=== PATIENT | male | born 1955 | race Caucasian/White ===

== ENCOUNTER 2017-12-20 07:30 | Day surgery (SDC) | payer OTHER, SELFPAY ==
--- NOTE | 2017-12-20 | PATH_ITS ---
[facility] Accession Number: [id number] . 01 Material submitted: . PART A: LEFT COLON POLYP AT 40CM PART B: RECTAL POLYP . 02 Diagnosis: A. Left Colon, Polyp at 40 cm, Biopsy: Tubular adenoma. . B. Rectum, Polyp, Biopsy: Tubular adenoma. MRV/12/21/2017 . 02 Electronically signed: . Cecilia Ricci MD, Pathologist NPI- [id number] . 01 Gross description: . Received two formalin-filled containers, both labeled with the patient's name: . A. In a container labeled left colon polyp at 40 cm, the specimen consists of a 0.3 cm portion of tissue, entirely submitted in cassette A. B. In a container labeled rectal polyp, the specimen consists of a 0.4 cm portion of tissue, entirely submitted in cassette B. ([id number]) /FRR . 02 Pathologist provided ICD-10: D12.6, D12.8 . 02 CPT . 080716, [id number] Performed at: 01 [facility] [address] [facility], [place], [place] [id number] MD Dave Martínez MD Phone: [phone] Performed at: 02 [facility] [address] [place], [place] [id number] MD Narcios Koroma MD Phone: [phone]
[2017-12-20 08:07] VITALS: BP 129/85; PULSE 76; RESP 16; TEMP 36.5; O2SAT 99; BMI 28.7
[2017-12-20] MEDS: SODIUM CHLORIDE 0.9% 1,000 ML 200 ML IV (08:13)
--- NOTE | 2017-12-20 08:39 | PM.HP.1 ---
History of Present Illness Date Patient Seen: 12/20/17 Time Patient Seen: 08:39 Chief complaint: [id number] Narrative: 62-year-old male presenting for colorectal screening. His last examination was 10 years ago. He reports that it was normal at that time. On further history today he denies any recent gastrointestinal symptoms. No nausea, vomiting, abdominal pain, unexplained weight loss, loss of appetite, change in bowel habits, diarrhea, constipation, melena, hematochezia, or bright red blood per rectum. Patient History Medical History Chronic lymphocytic leukemia (Acute) Hypercholesterolemia (Acute) No significant past surgical history (Acute) Surgical History History of colonoscopy (Acute) Family & Social History Family History: Reviewed 12/20/17 by González Noonan MD Social History: household members spouse Meds Home Medications Medication Instructions Recorded Confirmed Type aspirin 81 mg PO DAILY 12/20/17 12/20/17 History atorvastatin 20 mg PO DAILY 12/20/17 12/20/17 History finasteride 5 mg PO DAILY 12/20/17 12/20/17 History pediatric [id number] 12/20/17 History [Multi-Vitamins with Iron] Allergies Allergy/AdvReac Type Severity Reaction Status Date / Time morphine AdvReac Severe Nausea Verified 12/20/17 08:14 Review of Systems Review of Systems All systems reviewed & are unremarkable except as noted in HPI and below Exam Vital Signs (past 8 hours): - 12/20/17 08:07 Temperature 97.7 F Pulse Rate 76 Respiratory Rate 16 Blood Pressure 129/85 Pulse Oximetry 99 Oxygen Delivery Method Room Air Narrative Exam Narrative: Well-nourished well-developed male in no acute distress. Alert oriented x3. is at the bedside for my entire visit. Sclera nonicteric Regular rate and rhythm No wheezes Abdomen soft, nondistended, nontender, no masses Extremities show no clubbing, cyanosis, or edema Objective Labs Labs: No recent laboratory or radiographic studies for review Assessment & Plan Plan: Assessment/Plan Narrative: 62-year-old male requiring colorectal screening by age criteria. Furthermore, it has been 10 years since his last examination. Colonoscopy is currently recommended. Technical details of the procedure were discussed. Risks, benefits, and alternatives were explained. Risks including but not limited to sedation, aspiration, bleeding, pain, missed lesion, incomplete examination, need for further radiographic studies, colonic perforation, need for major abdominal surgery, and all attendant risks of major surgery were explained at length. All questions were answered to his satisfaction, and he voiced understanding. Consent was placed on the chart. We will proceed as above.
--- NOTE | 2017-12-20 08:43 | P.HP_ITS ---
History of Present Illness Date Patient Seen: 12/20/17 Time Patient Seen: 08:39 Chief complaint: [id number] Narrative: 62-year-old male presenting for colorectal screening. His last examination was 10 years ago. He reports that it was normal at that time. On further history today he denies any recent gastrointestinal symptoms. No nausea , vomiting, abdominal pain, unexplained weight loss, loss of appetite, change in bowel habits, diarrhea, constipation, melena, hematochezia, or bright red blood per rectum. Patient History Medical History Chronic lymphocytic leukemia (Acute) Hypercholesterolemia (Acute) No significant past surgical history (Acute) Surgical History History of colonoscopy (Acute) Family & Social History Family History: Reviewed 12/20/17 by González Noonan MD Social History: household members spouse Meds Home Medications Medication Instructions Recorded Confirmed Type aspirin 81 mg PO DAILY 12/20/17 12/20/17 History atorvastatin 20 mg PO DAILY 12/20/17 12/20/17 History finasteride 5 mg PO DAILY 12/20/17 12/20/17 History pediatric [id number]-[id number] 12/20/17 History [Multi-Vitamins with Iron] Allergies Allergy/AdvReac Type Severity Reaction Status Date / Time morphine AdvReac Severe Nausea Verified 12/20/17 08:14 Review of Systems Review of Systems All systems reviewed & are unremarkable except as noted in HPI and below Exam Vital Signs (past 8 hours): - 12/20/17 08:07 Temperature 97.7 F Pulse Rate 76 Respiratory Rate 16 Blood Pressure 129/85 Pulse Oximetry 99 Oxygen Delivery Method Room Air Narrative Exam Narrative: Well-nourished well-developed male in no acute distress. Alert oriented x3. is at the bedside for my entire visit. Sclera nonicteric Regular rate and rhythm No wheezes Abdomen soft, nondistended, nontender, no masses Extremities show no clubbing, cyanosis, or edema Objective Labs Labs: No recent laboratory or radiographic studies for review Assessment & Plan Plan: Assessment/Plan Narrative: 62-year-old male requiring colorectal screening by age criteria. Furthermore, it has been 10 years since his last examination. Colonoscopy is currently recommended. Technical details of the procedure were discussed. Risks, benefits, and alternatives were explained. Risks including but not limited to sedation, aspiration, bleeding, pain, missed lesion, incomplete examination, need for further radiographic studies, colonic perforation, need for major abdominal surgery, and all attendant risks of major surgery were explained at length. All questions were answered to his satisfaction, and he voiced understanding. Consent was placed on the chart. We will proceed as above.
--- NOTE | 2017-12-20 08:43 | PM.PREOP ---
Pre-operative Note Interval Note Pre-op Check: Yes History & Physical Reviewed by Physician, Yes Exam Performed and Yes History & Physical exam performed today by Physician Changes: No H&P completed within 30 days and has changed as indicated here:: Patient seen and examined today. History and physical examination is placed on the chart. No changes as documented. Proceed with colonoscopy today as planned. ASA Class (for procedural sedation): II
[2017-12-20] MEDS: ONDANSETRON 4 MG/2 ML INJ IV (08:44)
[2017-12-20] MEDS: fentaNYL 250 MCG/5 ML INJ IV (08:51)
[2017-12-20] MEDS: MIDAZOLAM 5 MG/5 ML VIAL IV (08:51)
--- NOTE | 2017-12-20 09:08 | PM.OP.ENDO ---
Operative Date/Time/Diagnoses Date of procedure: 12/20/17 Time of procedure: 09:08 Pre-op diagnosis: Colorectal screening Post-op diagnosis: other (Colon polyps and diverticulosis) Procedure & Clinicians Study performed: 1. Sedation per surgeon 2. Colonoscopy with cold forceps polypectomies Same procedure as scheduled: Yes Indications: 62-year-old male who presents for colorectal screening. Colonoscopy is currently recommended. Surgeon: González Noonan Procedure Notes SCOAP/Timeout: Yes Procedure in detail: After obtaining informed consent, the patient was brought to the GI suite and placed in the left lateral decubitus position on the examination table. After placement of appropriate monitors, the patient was given incremental doses of Versed and Fentanyl until an appropriate level of sedation was achieved. A time out was held per SCOAP protocol. A digital rectal examination was performed and did not reveal any masses or obstructing lesions. The colonoscope was gently passed into the patient's anus and the entire colon navigated to the level of the cecum with minimal difficulty. Once in the cecum, the scope was withdrawn being sure to go before and beyond all mucosal folds and prominences and get an excellent examination. The findings are noted above. At the level of the rectal vault, the scope was retroflexed and the internal anal canal was examined. The scope was straightened and air aspirated from the colon. The instrument was removed from the patient's body and the procedure was concluded. The patient was allowed to awaken from sedation without difficulty and taken to the post-anesthesia care unit in good condition. Scope withdrawal time: 13:05 min Sedation minutes: 20 Findings: diverticulosis and polyp Specimen(s): other (1. Left colon polyp at 40 cm 2. Rectal polyp) Complications: none Recommendations: Colonscopy in 5 years, High fiber diet and Will call with biopsy results Plan for aftercare: 1. Discharged home Follow up: as needed Disposition: PACU
[2017-12-20 09:13] VITALS: BP 114/75; PULSE 62; RESP 16; TEMP 37.7; O2SAT 96
[2017-12-20 09:21] VITALS: BP 111/71; PULSE 62; RESP 16; O2SAT 98
[2017-12-20 09:30] VITALS: BP 104/65; PULSE 62; RESP 16; O2SAT 96
== END 2017-12-20 09:40 | disposition home or self-care (01) ==
PROVIDERS: Visit Provider Surgery
PROC: 0DJD8ZZ Inspection of Lower Intestinal Tract, Via Natural or Artificial Opening Endoscopic (ICD-10-PCS; CPT 45378; principal; 2017-12-20 08:45)
DX: Z12.11 Encounter for screening for malignant neoplasm of colon (principal); K57.30 Diverticulosis of large intestine without perforation or abscess without bleeding; K62.1 Rectal polyp; D12.4 Benign neoplasm of descending colon
CPT/HCPCS: 45380; 99152; J2250; J2405; J3010

== ENCOUNTER → 2021-01-09 14:12 | Outpatient (CLI) | payer OTHER, SELFPAY ==
--- NOTE | 2021-01-09 14:15 | DI.US.S_ITS ---
PROCEDURE: US PERIPH VENOUS LOW EXTREM RT INDICATIONS: Varicose veins, clinical concern for possible DVT TECHNIQUE: Real-time imaging, as well as color and pulse Doppler interrogation, were performed of the lower extremity deep veins from the inguinal ligament to the popliteal fossa. COMPARISON: None. FINDINGS: The common femoral, femoral and popliteal veins are normally compressible, and free of intraluminal thrombus. Color and pulse Doppler demonstrate normal phasic intraluminal flow. There is normal augmentation response to distal compression maneuver. Patent, prominent varicose veins can be seen within the upper/lateral calf. IMPRESSION: Negative for deep venous thrombosis. Dictated by: Gino Vergara M.D. on 01/09/2021 at 13:54 Approved by: Gino Vergara M.D. on 01/09/2021 at 13:54
== END ==
PROVIDERS: PCP Family Medicine; Referring Provider Family Medicine; Visit Provider Family Medicine
DX: I83.91 Asymptomatic varicose veins of right lower extremity (principal); R60.0 Localized edema
CPT/HCPCS: 93971

== ENCOUNTER → 2022-04-08 14:53 | Outpatient (CLI) | payer MEDICARE, SELFPAY ==
--- NOTE | 2022-04-08 14:56 | DI.CT.S_ITS ---
PROCEDURE: CT SINUS SCREEN WO CON INDICATIONS: Chronic pansinusitis TECHNIQUE: Noncontrast 3.0 mm axial images acquired from the frontal sinuses to the mid-sella, with coronal and sagittal reformats. For radiation dose reduction, the following was used: automated exposure control, adjustment of mA and/or kV according to patient size. COMPARISON: None. FINDINGS: Image quality: There is artifact associated with the metallic hardware. Artifact from the metallic hardware is reduced by metal reconstruction algorithm. Maxillary Sinuses: No bony remodeling or destruction. Mild mucosal thickening is seen within the inferior maxillary sinuses. Ethmoid Air Cells: No bony remodeling or destruction. Sinuses are clear. Sphenoid Sinuses: No bony remodeling or destruction. Sinuses are clear. Frontal Sinuses: No bony remodeling or destruction. There is mild mucosal thickening within the inferior medial frontal sinuses. Ostiomeatal Complexes: Ostiomeatal complexes are patent, yet they are constitutionally narrowed. No definite Siddhartha cells. Miscellaneous: Visualized intra-orbital contents are normal. There are bilateral trip bullosa. There is mild rightward nasal septal deviation. IMPRESSION: Mild paranasal sinus disease is seen. Constitutionally narrowed ostiomeatal complexes. Bilateral trip bullosa can be seen. There is mild rightward nasal septal deviation. Dictated by: Gino Vergara M.D. on 04/08/2022 at 15:04 Approved by: Gino Vergara M.D. on 04/08/2022 at 15:05
== END ==
PROVIDERS: PCP Family Medicine; Referring Provider Otolaryngology; Visit Provider Otolaryngology
DX: J32.4 Chronic pansinusitis (principal); R09.82 Postnasal drip; J34.89 Other specified disorders of nose and nasal sinuses; J34.2 Deviated nasal septum; J34.3 Hypertrophy of nasal turbinates
CPT/HCPCS: 70486

== ENCOUNTER 2022-12-08 07:41 | Day surgery (SDC) | payer OTHER, SELFPAY ==
[2022-12-08] VITALS (8 sets, daily range): BP systolic 93–122; BP diastolic 61–78; PULSE 62–70; RESP 15–24; TEMP 36.1–36.3; O2SAT 95–99; BMI 27.2
[2022-12-08] MEDS: LACTATED RINGERS 1,000 ML 150 ML IV (07:53)
--- NOTE | 2022-12-08 08:52 | PM.HP.1 ---
History of Present Illness History of Present Illness Date Patient Seen: 12/08/22 Time Patient Seen: 08:52 Chief complaint: Colonoscopy Narrative: 67-year-old man personal history of colonic polyps here for screening colonoscopy. Last colonoscopy 2018 2 adenomatous polyps. No abdominal pain unintentional loss, however he does notice some irregularity bowel habit over the past few years. No family history of intestinal malignancy PFSH Medical History Hypercholesterolemia Chronic lymphocytic leukemia Surgical History No significant past surgical history History of colonoscopy Social History household members: spouse Smoking Status: Never smoker alcohol intake: current Meds Home Medications and Allergies Home Medications Medication Instructions Recorded Confirmed Type atorvastatin 20 mg tablet 20 mg PO DAILY 12/20/17 12/08/22 History finasteride 5 mg tablet 5 mg PO DAILY 12/20/17 12/08/22 History pediatric jvwfcljv-zvvl-htl 12/20/17 History (Multi-Vitamins with Iron chewable tablet) doxazosin 4 mg tablet 4 mg PO ONCE PM 12/08/22 12/08/22 History Allergies Allergy/AdvReac Type Severity Reaction Status Date / Time morphine AdvReac Severe Nausea Verified 12/08/22 08:03 Exam Vital Signs (past 8 hours): - 12/08/22 08:06 Temperature 97.0 F L Pulse Rate 69 Respiratory Rate 18 Blood Pressure 118/72 Pulse Oximetry 98 Oxygen Delivery Method Room Air Oxygen Delivery Method Room Air Narrative Exam Narrative: General adult man alert oriented no acute distress Abdomen soft nontender nondistended Assessment & Plan Assessment & Plan narrative: The patient requires colorectal screening and colonoscopy is recommended. Technical details were discussed. Risks, benefits, alternatives explained. Risks including but not limited to myocardial infarction, aspiration, bleeding, pain, missed lesion, incomplete examination, need for further radiographic studies, colonic perforation, and need for major abdominal surgery were discussed. All questions were answered to their satisfaction, and they are in agreement with this plan.
--- NOTE | 2022-12-08 09:24 | PM.OP.COLON ---
Operative Date/Time/Diagnoses Date of procedure: 12/08/22 Time of procedure: 09:24 Pre-op diagnosis: Personal history of colonic polyps Post-op diagnosis: same Procedure & Clinicians Study performed: Colonoscopy Same procedure as scheduled: Yes Indications: Personal history of colonic polyps. Colorectal screening. Surgeon: César Maldonado Procedure Notes Procedure in detail: The history and physical was performed/updated and the patient is ASA class is 2. The procedure was discussed in detail with the patient. Potential risks complications including infection, bleeding, missed diagnosis, perforation, need for surgery, and were explained. Their questions were answered and informed consent was obtained. Patient was brought to the procedure room and placed standard monitoring equipment. The patient's vital signs were monitored continuously throughout the entire procedure. Prior to starting time-out was performed. The patient was placed in the left lateral recumbent position. Procedural sedation was administered by anesthesia. Examination began with a thorough inspection of the perianal area there was no evidence of fissures, fistulae, external hemorrhoids or cutaneous malignancy. The colonoscopy scope was then placed into the anal canal and was advanced to the cecum, which was identified by the ileocecal valve, the appendiceal orifice and the confluence of the taenia. The scope was then slowly withdrawn examining colon thoroughly in all directions, irrigating it of any residual stool. No masses or polyps. Sigmoid diverticulosis moderate The patient tolerated the procedure well. They will be discharged once criteria are met. The prep was of good/excellent quality. The withdrawl time was 7 minutes. Specimen(s): none sent Impression: Normal colonoscopy Post-procedure Recommendations: Colonoscopy in 10 years
== END 2022-12-08 09:57 | disposition home or self-care (01) ==
PROVIDERS: PCP Family Medicine; Referring Provider Surgery; Visit Provider Surgery
PROC: 0DJD8ZZ Inspection of Lower Intestinal Tract, Via Natural or Artificial Opening Endoscopic (ICD-10-PCS; CPT 45378; principal; 2022-12-08 08:45)
DX: Z12.11 Encounter for screening for malignant neoplasm of colon (principal); Z86.010 Personal history of colon polyps; K57.30 Diverticulosis of large intestine without perforation or abscess without bleeding
CPT/HCPCS: G0105; J2704

== ENCOUNTER → 2024-09-08 19:35 | Outpatient (CLI) | payer MEDICARE, SELFPAY ==
--- NOTE | 2024-09-08 19:36 | DI.MRI.S_ITS ---
PROCEDURE: MR ANKLE RT WO CON INDICATIONS: ANKEL PAIN TECHNIQUE: Noncontrast sagittal T1 spin echo and T2 fast spin echo with fat saturation, axial proton density fast spin echo and T2 fast spin echo with fat saturation, coronal T1 spin echo and T2 fast spin echo with fat saturation through the ankle/hindfoot. COMPARISON: [facility], RG, ANKLE MIN 3VW (RT), 05/18/2024, 8:14. [facility], CR, XR ANKLE 3 VIEWS WEIGHT BEARING RIGHT, 08/24/2024, 9:20. FINDINGS: Image quality: Excellent. Bones and joints: No acute trabecular bone injury or fracture. No hindfoot coalitions. No osteochondral injuries of the talar dome. Small nonedematous posterior and plantar calcaneal enthesophytes. Mild edema and cystic changes at the medial aspect of the distal fibula adjacent to the mortise joint. Varicose veins are incidentally noted in the subcutaneous tissues. Medial structures: The deltoid ligament and the spring ligament complex are intact. Mild distal posterior tibialis tenosynovitis. The flexor digitorum longus and flexor hallucis longus tendons are intact. The posterior tibial neurovascular bundle appears normal within the tarsal tunnel, without extrinsic mass effect. Lateral structures: Remote prior moderate grade sprain of the anterior talofibular ligament and low-grade sprain of the calcaneofibular ligament. Posterior talofibular ligament is intact. Anterior and posterior tibiofibular ligaments are intact. There is partial intrasubstance tearing of the peroneus longus tendon at the level of the distal fibular tip with distal tendon reconstitution at the level of the calcaneocuboid joint. Findings are superimposed on chronic peroneus brevis and longus tendinosis. Mild tenosynovitis. Normal fat signal in the sinus tarsi. Anterior structures: The tibialis anterior, extensor hallucis longus, and extensor digitorum longus tendons appear intact. Posterior and plantar structures: Achilles tendon is intact. Mild thickening of the proximal plantar fascia without surrounding edema. Mild fatty infiltration of the abductor digiti minimi muscle atrophy is suspicious for chronic denervation changes. IMPRESSION: 1. Partial intrasubstance tearing of the peroneus longus tendon at the level of the distal fibular tip with tendon reconstitution at the level of the calcaneocuboid joint. Moderate peroneus brevis and longus tendinosis and mild tenosynovitis. 2. Remote prior grade 2 sprain of the anterior talofibular ligament and grade 1 sprain of the calcaneofibular ligament. 3. Mild distal posterior tibialis tenosynovitis. 4. Mild chronic proximal plantar fasciitis. 5. Fatty infiltration of the abductor digiti minimi muscle suspicious for chronic denervation changes/Jovel neuropathy. Approved by: Stefano Franklin M.D. on 09/11/2024 at 12:51
== END ==
LOC: MRI 19:35
PROVIDERS: PCP Family Medicine; Referring Provider Orthopaedic Surgery Foot and Ankle Surgery; Visit Provider Orthopaedic Surgery Foot and Ankle Surgery
DX: S86.311A Strain of muscle(s) and tendon(s) of peroneal muscle group at lower leg level, right leg, initial encounter (principal); M65.971 Unspecified synovitis and tenosynovitis, right ankle and foot; S93.411A Sprain of calcaneofibular ligament of right ankle, initial encounter; S93.491A Sprain of other ligament of right ankle, initial encounter; M72.2 Plantar fascial fibromatosis; X58.XXXA Exposure to other specified factors, initial encounter
CPT/HCPCS: 73721